=== PATIENT | male | born 1995 | race Two or more races ===

== ENCOUNTER 2021-08-06 00:37 | Emergency (ER) | payer OTHER ==
[~2021-08-06] VITALS: Ht 175.3 cm; Wt 90.7 kg
[2021-08-06 00:47] VITALS: BP 118/72
--- NOTE | 2021-08-06 01:05 | NUR ---
PT IS MEDICALLY CLEARED AND RELEASED UNDER THE CARE OF [employer] OFFICERS. PT IS IN STABLE CONDITION FOR TRANSPORT. PT IS AMBULATORY ON STEADY GAIT. LEFT IN HAND CUFFS
== END 2021-08-06 01:38 ==
LOC: ER 00:46
DX: Z02.89 Encounter for other administrative examinations (principal); F17.200 Nicotine dependence, unspecified, uncomplicated; V49.49XA Driver injured in collision with other motor vehicles in traffic accident, initial encounter; Y93.89 Activity, other specified; Y92.413 State road as the place of occurrence of the external cause; Y99.8 Other external cause status